=== PATIENT | female | born 1965 | race Caucasian/White ===

== ENCOUNTER 2017-05-31 08:23 | Outpatient (CLI) | payer BC ==
--- NOTE | 2017-05-31 10:06 | RAD ---
SACRUM AND COCCYX FOUR VIEWS: HISTORY: A 51-year-old female with severe coccyx pain for five years. FINDINGS: Surgical clips overly the pelvis. Mild degenerative changes of both SI joints. No evidence for an overt sacral or coccygeal fracture. Given severe pain, consideration for a follow-up MRI is suggested to evaluate for the potential of a n insufficiency fracture, which may not be evident on plain film or CT. IMPRESSION: Unremarkable sacrum and coccyx. Consider follow-up MRI if the patient has persistent or worsening unexplained sacrococcygeal pain. POS: [facility]
== END 2017-05-31 08:24 | disposition home or self-care (01) ==
LOC: SCSRAD 08:23
PROVIDERS: ATTEND Psychiatry & Neurology Neurology
DX: G43.109 Migraine with aura, not intractable, without status migrainosus (principal)
CPT/HCPCS: 72220

== ENCOUNTER 2021-07-14 15:12 | Outpatient (CLI) | payer BC | END 2021-07-14 15:13 | disposition home or self-care (01) | LOC: BICMAMMO 15:12 | PROVIDERS: ATTEND Internal Medicine Rheumatology | DX: Z13.820 Encounter for screening for osteoporosis (principal); M54.50 Low back pain, unspecified; Z78.0 Asymptomatic menopausal state; M47.816 Spondylosis without myelopathy or radiculopathy, lumbar region; M48.061 Spinal stenosis, lumbar region without neurogenic claudication | CPT/HCPCS: 72110; 77080 ==